=== PATIENT | male | born 1935 | race African-American/Black ===

== ENCOUNTER 2017-04-13 13:03 | Inpatient (IN) | payer OTHER ==
[~2017-04-13] VITALS: Ht 165.1 cm; Wt 77.1 kg
[2017-04-13 14:31] LABS: BASOPHILS % 0.4 % (0.0-2.0); EOSINOPHILS % 2.6 % (0.0-5.0); HEMATOCRIT. 37.9 % (42.0-52.0); HEMOGLOBIN. 12.6 g/dL (14.0-18.0); LYMPHOCYTES % 30.1 % (20.0-50.0); MEAN CORPUSCULAR HEMOGLOBIN 30.5 pg (28.0-32.0); MEAN PLATELET VOLUME 7.7 fl (7.4-10.4); MONOCYTES % 9.4 % (2.0-8.0); NEUTROPHILS % 57.5 % (40.0-76.0); PLATELET 222 x1000/uL (130-400); RED BLOOD CELL COUNT 4.12 mill/uL (4.7-6.1); RED CELL DISTRIBUTION WIDTH 13.5 % (11.6-14.6)
[2017-04-13 14:45] LABS: PARTIAL THROMBOPLASTIN TIME 25.2 sec (23.4-31.0); PROTHROMBIN TIME 10.8 sec (9.4-11.6)
[2017-04-13 14:47] LABS: CHLORIDE 105 mEq/L (98-107); ETHANOL BLOOD < 10 mg/dL
[2017-04-13] MEDS ORDERED: CLOPIDOGREL 75MG TABLET PO ONE (15:15)
[2017-04-13] MEDS ORDERED: ASPIRIN 81MG TABLET PO ONE (15:15)
[2017-04-13] MEDS ORDERED: SIMV10TA6 PO (17:27)
[2017-04-13] MEDS ORDERED: ASPI-1159 PO (17:28)
[2017-04-13] MEDS ORDERED: LOSA50TA20 PO (17:28)
[2017-04-13] MEDS ORDERED: CLOT10TR PO (17:29)
[2017-04-13 21:56] VITALS: BP 130/56
[2017-04-13] MEDS ORDERED: LORA10TA7 PO (22:39)
[2017-04-13] MEDS ORDERED: MAGNESIUM HYDROXIDE 400MG/5ML 30ML UDC PO PRN (23:45)
[2017-04-13] MEDS ORDERED: DEXTROSE 50% WATER 50ML SYRINGE IV PRN (23:45)
[2017-04-13] MEDS ORDERED: MAGNESIUM/ALUMINUM HYDROXIDE/SIMETHICONE 30ML UDC PO PRN (23:45)
[2017-04-13] MEDS ORDERED: DIPHENHYDRAMINE 50MG/ML VIAL IV PRN (23:45)
[2017-04-13] MEDS ORDERED: ACETAMINOPHEN 325MG TABLET PO PRN (23:45)
[2017-04-13] MEDS ORDERED: CLONIDINE 0.1MG TABLET PO PRN (23:45)
[2017-04-13] MEDS ORDERED: ONDANSETRON HCL 4MG/2ML INJ IV PRN (23:45)
[2017-04-14] VITALS (7 sets, daily range): BP systolic 110–134; BP diastolic 50–61
[2017-04-14] MEDS: SODIUM CHLORIDE 0.9% INJ 3ML FLUSH IVF SCH ×2 (05:42→15:54)
[2017-04-14] MEDS: BLOOD SUGAR DIAGNOSTIC STRIP TEST SCH ×3 (06:37→17:51)
[2017-04-14] MEDS: INSULIN LISPRO 100 UNITS/ML SUBCUT SCH ×3 (07:03→17:50)
[2017-04-14] MEDS ORDERED: ASPIRIN 325MG EC TABLET PO SCH (09:00)
[2017-04-14] MEDS ORDERED: LORAZEPAM 2MG/ML CPJ IV NR (11:45)
[2017-04-14 12:53] LABS: CLARITY URINE CLEAR (CLEAR); COLOR URINE YELLOW (YELLOW); KETONES URINE NEGATIVE (NEGATIVE); LEUKOCYTE ESTERASE URINE NEGATIVE (NEGATIVE); NITRITE URINE NEGATIVE (NEGATIVE); OCCULT BLOOD URINE NEGATIVE (NEGATIVE); PROTEIN URINE NEGATIVE (NEGATIVE); SPECIFIC GRAVITY URINE 1.014 (1.005-1.030); UROBILINOGEN URINE 0.2 E.U./dL (0.2-1.0)
[2017-04-14 13:40] LABS: *AMPHETAMINES SCREEN URINE NEGATIVE (NEGATIVE); *BARBITURATES SCREEN URINE NEGATIVE (NEGATIVE); *BENZODIAZEPINES SCREEN URINE NEGATIVE (NEGATIVE); *COCAINE SCREEN URINE NEGATIVE (NEGATIVE); CANNABINOID URINE SCREEN PRESUMTIVE POSITIVE (NEGATIVE); METHADONE URINE SCREEN NEGATIVE (NEGATIVE); OPIATES URINE SCREEN NEGATIVE (NEGATIVE); PHENCYCLIDINE URINE SCREEN NEGATIVE (NEGATIVE)
== END 2017-04-14 21:00 | disposition home or self-care (01) | DRG 69 ==
LOC: ER 13:15 → 6WST 15:18 → ENRESERV 17:03
PROVIDERS: ADMIT Internal Medicine; ATTEND Internal Medicine
DX: G45.9 Transient cerebral ischemic attack, unspecified (principal); E11.9 Type 2 diabetes mellitus without complications; E78.00 Pure hypercholesterolemia, unspecified; R47.81 Slurred speech; E78.5 Hyperlipidemia, unspecified; I10 Essential (primary) hypertension; G31.9 Degenerative disease of nervous system, unspecified
CPT/HCPCS: 36415; 70551; 71045; 80061; 80305; 82962; 84484; 92523; 93005; 93880; 97162; 99291; G0482; J2060